=== PATIENT | female | born 1965 | race Two or more races ===

== ENCOUNTER → 2023-05-21 06:00 | Outpatient (CLI) | payer OTHER ==
[2023-05-21 09:46] LABS: PH,URINE 6.5 (5.0-8.0); URINE APPEARANCE Clear; URINE BILIRRUBIN Negative (NEGATIVE); URINE BLOOD Negative; URINE COLOR Yellow; URINE GLUCOSE Negative (NEGATIVE); URINE LEUKOCYTE Trace; URINE NITRATE Negative; URINE PROTEIN Negative (NEGATIVE)
[2023-05-21 09:51] LABS: URINE BACTERIA 1189.2 uL (0.0-1933); URINE EPITHELIAL CELLS 35.8 uL (0.0-38.8); URINE RBC 5.1 uL (0.0-20.8); URINE WBC 10.9 uL (0.0-23.2)
[2023-05-21 09:52] LABS: MEAN CELL VOLUME 95.2 fL (80.00-100.00); MEAN CORPUSCULAR HEMOGLOBIN 32.6 pg (27.00-32.0); MEAN CORPUSCULAR HGB CONC 34.2 g/dl (32.0-36.0); PLATELET COUNT 299 K/uL (150-450); RED BLOOD COUNT 3.99 M/uL (4.00-6.00); RED CELL DISTRIBUTION WIDTH 13.7 % (11.5-14.5)
[2023-05-21 10:10] LABS: INR 0.99; PARTIAL THROMBOPLASTIN TIME 25.9 SECONDS (22.0-34.0); PROTHROMBIN TIME 10.4 SECONDS (9.0-11.5)
[2023-05-21 10:14] LABS: CALCIUM 8.8 mg/dL (8.5-10.1); CREATININE SERUM 0.75 mg/dL (0.55-1.02); GFR 79.93; POTASSIUM 4.12 mEq/L (3.5-5.1)
== END | disposition home or self-care (01) ==
LOC: LAB 06:00 → ADM 07:45 → EDSTATUS 05-28 07:45 → CIR.AMB 05-28 07:45
PROVIDERS: ATTEND Surgery
DX: Z01.818 Encounter for other preprocedural examination (principal); K40.20 Bilateral inguinal hernia, without obstruction or gangrene, not specified as recurrent; M25.559 Pain in unspecified hip; Z20.828 Contact with and (suspected) exposure to other viral communicable diseases

== ENCOUNTER 2023-06-16 07:23 | Day surgery (SDC) | payer OTHER ==
[2023-06-10 11:43] LABS: ALBUMIN 4.1 gm/dL (3.4-5.0); BILIRUBIN TOTAL 0.46 mg/dL (0.3-1.2); CALCIUM 8.7 mg/dL (8.5-10.1); CHOL HDL RATIO 3.5 (0-5.0); CREATININE SERUM 0.74 mg/dL (0.55-1.02); GFR 81.18; GLOBULINA 3.6 G/DL (2.4-3.5); POTASSIUM 4.04 mEq/L (3.5-5.1); TOTAL PROTEIN 7.7 gm/dL (6.4-8.2)
== END 2023-06-16 18:00 | disposition home or self-care (01) ==
LOC: CIR.AMB 07:23
PROVIDERS: ATTEND Surgery
DX: K40.20 Bilateral inguinal hernia, without obstruction or gangrene, not specified as recurrent (principal); Z20.822 Contact with and (suspected) exposure to COVID-19; Z88.8 Allergy status to other drugs, medicaments and biological substances
CPT/HCPCS: 49650; S2900

== ENCOUNTER 2025-02-11 03:29 | Emergency (ER) | payer OTHER ==
[~2025-02-11] VITALS: Ht 162.6 cm; Wt 59.0 kg
[2025-02-11] MEDS ORDERED: ORPHENADRINE CITRATE 30 MG/ML AMPUL IM STA (04:16)
[2025-02-11] MEDS ORDERED: KETOROLAC TROMETHAMINE 60 MG VIAL IM STA (04:17)
[2025-02-11] MEDS ORDERED: DEXAMETHASONE SODIUM PHOSPHATE 4 MG/ML VIAL IM STA (04:18)
== END 2025-02-11 04:43 | disposition home or self-care (01) ==
LOC: ER 03:29
DX: M62.830 Muscle spasm of back (principal)